=== PATIENT | male | born 1930 | race Caucasian/White ===

== ENCOUNTER 2016-11-03 17:29 | Inpatient (IN) | payer MEDICARE, MEDICAID ==
--- NOTE | 2016-11-03 18:01 | ED Physician Chart ---
Chief Complaint/HPI - Patient Information Date Seen:: 11/03/16 Time Seen:: 17:30 Chief Complaint:: left long finger redness History of Present Illness:: patient has had redness left long finger since June. No chills or fever. Allergies:: Allergies Allergy/AdvReac Type Severity Reaction Status Date / Time No Known Allergies Allergy Verified 06/19/16 16:26 Historian:: Patient, EMS Review:: Nurse's Note Reviewed Review of Systems - Review of Systems General/Constitutional: No fever, No chills Skin: Skin lesions Head: No headache Eyes: No loss of vision ENT: No earache Neck: No neck pain Cardio Vascular: No chest pain Pulmonary: No SOB GI: No nausea, No vomiting G/U: No dysuria Musculoskeletal: No bone or joint pain Endocrine: No polyuria Psychiatric: No prior psych history Past Medical History - Past Medical History Past Medical History: DM, CAD, Asthma/COPD, Arthritis, Other (PVD) Family History: HTN Social History: Care Facility Surgical History: other (bladder surgery more than 50 years ago; amputation distal segment left index finger for infection) Psychiatricy History: Other (periods of forgetfulness) Medication: Reviewed Family Medical History - Family Member Mother History Unknown: Yes Ethnicity: Physical Exam - Physical Examination General/Constitutional: Well-developed, well-nourished, Alert Head: Atraumatic Eyes: Lids, conjuctiva normal, PERRL Other Eyes comments:: arcus senilis Skin: No rash ENMT: External ears, nose nl, Lips, teeth, gums nl, Oropharynx nl Neck: No nuchal rigidity Respiratory: Nl effort/Exclusion, Clear to Auscultation, No Wheeze/Rhonchi/Rales Cardio Vascular: RRR, No murmur, gallop, rubs GI: No tenderness/rebounding/guarding, No organomegaly, No hernia, Normal BS's : No CVA tenderness Other Extremities comments:: left long finger: redness distal to PIP joint; slightly shortened. Left index finger: amputation at DIP joint Neuro/Psych: Alert/oriented, No focal deficits Misc: Normal back Labs/Radiology/EKG Results - Lab Results Results: Laboratory Results - last 24 hr 11/03/16 11/03/16 18:00 18:00 WBC 4.1 L D RBC 3.94 Hgb 12.0 L Hct 35.8 L MCV 90.9 MCH 30.5 MCHC Differential 33.5 RDW 12.8 Plt Count 178 MPV 7.8 Neutrophils % 67.1 Lymphocytes % 19.9 L Monocytes % 10.4 H Eosinophils % 1.7 Basophils % 0.9 Sodium 134 L Potassium 4.6 Chloride 98 Carbon Dioxide 31.5 H Anion Gap 9.1 BUN 24 Creatinine 1.5 H Est GFR ( Amer) TNP Est GFR (Non-Af Amer) TNP BUN/Creatinine Ratio 16.0 Glucose 100 Calcium 8.8 - Radiology Results Results: left hand x-ray: resorption distal phalanx left long finger ED Septic Shock - . Is Septic Shock (SBP<90, OR Lactate>4 mmol\L) present?: No Reassessment (Disposition) - Reassessment Reassessment Condition:: Unchanged - Diagnosis Diagnosis:: osteomyelitis distal phalanx left long finger - Patient Disposition Admitted to:: Med/Surg Spoke to:: Rosendo Chun Admitting Medical Physician:: Rosendo Chun Condition at Disposition:: Stable, Unchanged
[2016-11-03 18:11] LABS: % BASOPHILS 0.9 % (0.0-2.0); % EOSINOPHILS 1.7 % (0.0-5.0); % LYMPHOCYTES 19.9 % (20.0-50.0); % MONOCYTES 10.4 % (2.0-10.0); % NEUTROPHILS 67.1 % (40.0-80.0); HEMATOCRIT 35.8 % (39.0-49.0); MEAN CELL VOLUME 90.9 fl (80-99); MEAN CORPUSCULAR HEMOGLOBIN 30.5 pg (27.0-31.0); MEAN CORPUSCULAR HGB CONC 33.5 pg (28.0-36.0); MEAN PLATELET VOLUME 7.8 fl; NEUTROPHILE ABSOLUTE 2.8 Th/cmm (1.8-8.0); PLATELET COUNT 178 Th/cmm (150-400); RED BLOOD COUNT 3.94 Mil/cmm (3.80-5.80); RED CELL DISTRIBUTION WIDTH 12.8 % (11.5-20.0)
[2016-11-03 18:26] LABS: ANION GAP 9.1 (7.0-16.0); BUN - UREA NITROGEN 24 mg/dL (7-25); CALCIUM SERUM 8.8 mg/dL (8.6-10.3); CARBON DIOXIDE 31.5 mEq/L (21.0-31.0); CHLORIDE 98 mEq/L (98-107); CREATININE - SERUM 1.5 mg/dL (0.7-1.3); GLUCOSE 100 mg/dL (70-105); POTASSIUM SERUM 4.6 mEq/L (3.5-5.1); SODIUM SERUM 134 mEq/L (136-145)
[2016-11-03 18:29] LABS: WHITE BLOOD COUNT 4.1 Th/cmm (4.8-10.8)
[2016-11-03 22:53] VITALS: BP 129/73
[2016-11-04] MEDS ORDERED: Magnesium Hydroxide (MOM) 30 mL UDC PO PRN (00:20)
[2016-11-04] MEDS ORDERED: Albuterol Nebulizer 2.5mg/3mL HHN PRN (00:25)
[2016-11-04] MEDS: Multivitamin Tab PO SCH (08:32)
[2016-11-04] MEDS: Pantoprazole 40 mg EC Tab PO SCH (08:32)
--- NOTE | 2016-11-04 10:40 | Diagnostic Imaging Report ---
Left hand 2 views Indication: Pain, osteomyelitis Comparison: none Findings: There is evidence of partial amputation of the second ray at the level of the mid phalanx. There is soft tissue swelling of the third ray with fracture and nonvisualization of the shaft and tuft of the third distal phalanx. Advanced degenerative changes of the radiocarpal joint is seen with scapholunate dissociation and diffuse chondrocalcinosis. Impression: Fracture of the third distal phalanx with nonvisualization of the shaft and the tuft which may be sequela of osteomyelitis and possible partial amputation. Please correlate clinically. There is diffuse surrounding soft tissue swelling. As such, osteomyelitis is highly likely in this region. Consider additional exam such as MRI if needed. Evidence of partial amputation at the level of the second mid phalanx Advanced degenerative changes of proximal carpal low with scapholunate dissociation. In the setting of trauma, if clinical symptoms persist and there is continued concern for an occult fracture, follow up exams in 5-7 days is suggested.
--- NOTE | 2016-11-04 11:45 | General Progress Note ---
Subjective - Review of Systems Service Date: 11/04/16 Events since last encounter: consult: infected distal phalanx left 3rd finder xray noted recommendation: amputation of distal phalanx on 11/07/16 Objective - Results Result Diagrams: 11/03/16 18:00 11/03/16 18:00 Recent Labs: Laboratory Last Values WBC 4.1 Th/cmm (4.8-10.8) L D 11/03/16 18:00 RBC 3.94 Mil/cmm (3.80-5.80) 11/03/16 18:00 Hgb 12.0 gm/dL (12.6-17.4) L 11/03/16 18:00 Hct 35.8 % (39.0-49.0) L 11/03/16 18:00 MCV 90.9 fl (80-99) 11/03/16 18:00 MCH 30.5 pg (27.0-31.0) 11/03/16 18:00 MCHC Differential 33.5 pg (28.0-36.0) 11/03/16 18:00 RDW 12.8 % (11.5-20.0) 11/03/16 18:00 Plt Count 178 Th/cmm (150-400) 11/03/16 18:00 MPV 7.8 fl 11/03/16 18:00 Neutrophils % 67.1 % (40.0-80.0) 11/03/16 18:00 Lymphocytes % 19.9 % (20.0-50.0) L 11/03/16 18:00 Monocytes % 10.4 % (2.0-10.0) H 11/03/16 18:00 Eosinophils % 1.7 % (0.0-5.0) 11/03/16 18:00 Basophils % 0.9 % (0.0-2.0) 11/03/16 18:00 ESR 46 mm/hr (0-20) H 11/04/16 06:28 Sodium 134 mEq/L (136-145) L 11/03/16 18:00 Potassium 4.6 mEq/L (3.5-5.1) 11/03/16 18:00 Chloride 98 mEq/L (98-107) 11/03/16 18:00 Carbon Dioxide 31.5 mEq/L (21.0-31.0) H 11/03/16 18:00 Anion Gap 9.1 (7.0-16.0) 11/03/16 18:00 BUN 24 mg/dL (7-25) 11/03/16 18:00 Creatinine 1.5 mg/dL (0.7-1.3) H 11/03/16 18:00 Est GFR ( Amer) TNP 11/03/16 18:00 Est GFR (Non-Af Amer) TNP 11/03/16 18:00 BUN/Creatinine Ratio 16.0 11/03/16 18:00 Glucose 100 mg/dL (70-105) 11/03/16 18:00 Calcium 8.8 mg/dL (8.6-10.3) 11/03/16 18:00 - Physical Exam Vitals and I&O: Vital Signs Temp 97.2 F 11/04/16 04:00 Pulse 60 11/04/16 08:32 Resp 18 11/04/16 04:00 BP 148/78 11/04/16 08:32 Pulse Ox 100 11/04/16 04:00 Active Medications: Current Medications Acetaminophen (Tylenol) 650 mg PO Q4H PRN PRN Reason: Pain (Mild) Stop: 01/03/17 00:17 Albuterol Sulfate (Albuterol 2.5mg/3ml Neb Ud) 2.5 mg HHN Q6H PRN PRN Reason: Shortness of Breath Stop: 01/03/17 00:24 Aspirin (Ecotrin) 81 mg PO DAILY [facility] Stop: 01/03/17 08:59 Last Admin: 11/04/16 08:32 Dose: 81 mg Carvedilol (Coreg) 6.25 mg PO BID [facility] Stop: 01/03/17 08:59 Last Admin: 11/04/16 08:32 Dose: 6.25 mg Docusate Sodium (Colace) 100 mg PO BID [facility] Stop: 01/03/17 08:59 Last Admin: 11/04/16 08:32 Dose: 100 mg Ibuprofen (Motrin) 400 mg PO Q6H PRN PRN Reason: Pain (Mild) Stop: 01/03/17 00:19 Magnesium Hydroxide (Milk Of Magnesia) 30 ml PO DAILY PRN PRN Reason: Constipation Stop: 01/03/17 00:19 Multivitamins/Vitamin C (Theragran) 1 tab PO DAILY [facility] Stop: 01/03/17 08:59 Last Admin: 11/04/16 08:32 Dose: 1 tab Pantoprazole Sodium (Protonix) 40 mg PO DAILY [facility] Stop: 01/03/17 08:59 Last Admin: 11/04/16 08:32 Dose: 40 mg
--- NOTE | 2016-11-04 13:19 | Admit Criteria Form ---
Admit Criteria Forms - Admit Criteria Diagnosis: OSTEOMYELITIS Clinical Indications for Admission to Inpatient Care (Place 'X' for any and all applicable criteria) Admission is indicated by ANY ONE of the following (1)(2)(3)(4)(5)(6): [ ] I. Significant systemic illness indicated by 2 or more of the following: [ ]a) Core (eg rectal) temperature greater or equal [id number](37.8C) in an adult [ ]b) Oral temperature[A] greater than or equal to 99.3 degrees F ( 37.4 degrees C) in an adult [ ]c) Heart rate greater than 90 beats per minute [ ]d) Respiratory rate greater than 20 breaths per minute or PaCO2 less than 32 mm Hg (4.3 kPa) [ ]e) White blood cell count > 12,000/mm3 (12 x109/L) or < 4000/mm3 ( 4 x109/L) or > 10% band cells [ ] II. Hemodynamic instability [ ] III. Severe pain requiring acute inpatient management [ ] IV. Bacteremia [ ] V. Mental status change (new) [ ] . Limb-threatening infection [ ] VII. Suspected necrotizing soft tissue infection (e.g., gas in tissue) [ ] VIII.Surgical intervention required (e.g., bone or soft tissue debridement, removal of foreign body, or revascularization procedure) not performable in outpatient or emergency department level of care(7) [X ] IX. Appropriate monitoring and therapy (IV antibiotics) cannot be immediately arranged for home or outpatient setting [ ] XI. Outpatient treatment failure (e.g., resistant organism identified, adverse medication effect, progression or lack of sufficient improvement of infection) [ ] XII. High-risk comorbid condition present including ANY ONE of the following : [ ]a) Poorly controlled diabetes (e.g., HbA1c greater than 10% (0.1)) [ ]b) Vascular insufficiency to affected area [ ]c) Cirrhosis [ ]d) Neutropenia [ ]e) Asplenia [ ]f) Immunosuppression (e.g., chronic systemic corticosteroid use) [ ]g) Symptomatic heart failure [ ] XIII.Joint involvement (e.g., septic arthritis) suspected [ ] XIV. Vertebral osteomyelitis [ ] XV. Skull-base osteomyelitis (e.g.,"malignant external otitis")[A](8)(9)(10 ) Extended stay beyond goal length of stay may be needed for(1)(3)(4)(5)(24)(25): [ ]a) Inadequate clinical response to antibiotics (e.g., continued fever, hypotension) [ ]b) Bacteremia [ ]c) Surgical intervention needed (e.g., beyond superficial debridement)(26) [ ]d) Vertebral osteomyelitis with spinal cord compression, abscess formation, or mechanical instability [ ]e) Antibiotic-resistant organism identified (e.g., methicillin-resistant Staphylococcal aureus) [ ]f) Deep venous thrombosis [ ]g) Unstable comorbidities (e.g., heart failure, renal insufficiency, immunosuppressed state)(28) The original [facility] content created by Ramya Lopez has been revised. The portions of the content which have been revised are identified through the use of italic text or in bold, and [facility] neither reviewed nor approved the modified material. All other unmodified content is copyright [facility].Edition 2016. Admit Criteria Met?: Yes
[2016-11-04] MEDS: Vancomycin HCl 1.5 GM in Sodium Chloride 0.9% 500 ML IV SCH (15:22)
[2016-11-04] MEDS ORDERED: VTE Chemical Prophylaxis Screen/Admission MC PRN (16:58)
[2016-11-05 07:49] LABS: ANION GAP 7.2 (7.0-16.0); BUN - UREA NITROGEN 22 mg/dL (7-25); BUN/CREATININE RATIO 16.9; CALCIUM SERUM 9.1 mg/dL (8.6-10.3); CARBON DIOXIDE 32.3 mEq/L (21.0-31.0); CHLORIDE 102 mEq/L (98-107); CREATININE - SERUM 1.3 mg/dL (0.7-1.3); GLUCOSE 88 mg/dL (70-105); POTASSIUM SERUM 4.5 mEq/L (3.5-5.1); SODIUM SERUM 137 mEq/L (136-145)
[2016-11-05] MEDS: Pantoprazole 40 mg EC Tab PO SCH (08:19)
[2016-11-05] MEDS: Multivitamin Tab PO SCH (08:20)
[2016-11-05] MEDS: Vancomycin HCl 1.5 GM in Sodium Chloride 0.9% 500 ML IV SCH (09:16)
--- NOTE | 2016-11-05 11:39 | General Progress Note ---
Subjective - Review of Systems Service Date: 11/05/16 Events since last encounter: will schedule for amputation of left middle finger distal phalanx if patient agrees refused this recommendation yesterday Objective - Results Result Diagrams: 11/03/16 18:00 11/05/16 06:50 Recent Labs: Laboratory Last Values WBC 4.1 Th/cmm (4.8-10.8) L D 11/03/16 18:00 RBC 3.94 Mil/cmm (3.80-5.80) 11/03/16 18:00 Hgb 12.0 gm/dL (12.6-17.4) L 11/03/16 18:00 Hct 35.8 % (39.0-49.0) L 11/03/16 18:00 MCV 90.9 fl (80-99) 11/03/16 18:00 MCH 30.5 pg (27.0-31.0) 11/03/16 18:00 MCHC Differential 33.5 pg (28.0-36.0) 11/03/16 18:00 RDW 12.8 % (11.5-20.0) 11/03/16 18:00 Plt Count 178 Th/cmm (150-400) 11/03/16 18:00 MPV 7.8 fl 11/03/16 18:00 Neutrophils % 67.1 % (40.0-80.0) 11/03/16 18:00 Lymphocytes % 19.9 % (20.0-50.0) L 11/03/16 18:00 Monocytes % 10.4 % (2.0-10.0) H 11/03/16 18:00 Eosinophils % 1.7 % (0.0-5.0) 11/03/16 18:00 Basophils % 0.9 % (0.0-2.0) 11/03/16 18:00 ESR 46 mm/hr (0-20) H 11/04/16 06:28 Sodium 137 mEq/L (136-145) 11/05/16 06:50 Potassium 4.5 mEq/L (3.5-5.1) 11/05/16 06:50 Chloride 102 mEq/L (98-107) 11/05/16 06:50 Carbon Dioxide 32.3 mEq/L (21.0-31.0) H 11/05/16 06:50 Anion Gap 7.2 (7.0-16.0) 11/05/16 06:50 BUN 22 mg/dL (7-25) 11/05/16 06:50 Creatinine 1.3 mg/dL (0.7-1.3) 11/05/16 06:50 Est GFR ( Amer) TNP 11/05/16 06:50 Est GFR (Non-Af Amer) TNP 11/05/16 06:50 BUN/Creatinine Ratio 16.9 11/05/16 06:50 Glucose 88 mg/dL (70-105) 11/05/16 06:50 Calcium 9.1 mg/dL (8.6-10.3) 11/05/16 06:50 - Physical Exam Vitals and I&O: Vital Signs Temp 97.4 F 11/05/16 11:26 Pulse 54 11/05/16 11:26 Resp 18 11/05/16 11:26 BP 132/62 11/05/16 11:26 Pulse Ox 98 11/05/16 11:26 Intake & Output 11/04/16 11/05/16 11/05/16 18:59 06:59 18:59 Intake Total 1100 Balance 1100 Intake: Intake, IV Amount 500 Vancomycin HCl 1.5 gm In 500 Sodium Chloride 0.9% 500 ml @ 250 mls/hr IV Q18H [facility] Rx#:[id number] Oral 600 Active Medications: Current Medications Acetaminophen (Tylenol) 650 mg PO Q4H PRN PRN Reason: Pain (Mild) Stop: 01/03/17 00:17 Albuterol Sulfate (Albuterol 2.5mg/3ml Neb Ud) 2.5 mg HHN Q6H PRN PRN Reason: Shortness of Breath Stop: 01/03/17 00:24 Aspirin (Ecotrin) 81 mg PO DAILY [facility] Stop: 01/03/17 08:59 Last Admin: 11/05/16 08:20 Dose: 81 mg Carvedilol (Coreg) 6.25 mg PO BID [facility] Stop: 01/03/17 08:59 Last Admin: 11/05/16 08:19 Dose: 6.25 mg Docusate Sodium (Colace) 100 mg PO BID [facility] Stop: 01/03/17 08:59 Last Admin: 02/25/17 08:19 Dose: 100 mg Vancomycin HCl 1.5 gm/ Sodium (Chloride) 500 mls @ 250 mls/hr IV Q18H [facility] Stop: 01/03/17 14:59 Last Admin: 11/05/16 09:16 Dose: 250 mls/hr Ibuprofen (Motrin) 400 mg PO Q6H PRN PRN Reason: Pain (Mild) Stop: 01/03/17 00:19 Magnesium Hydroxide (Milk Of Magnesia) 30 ml PO DAILY PRN PRN Reason: Constipation Stop: 01/03/17 00:19 Miscellaneous (Vancomycin Iv Per Pharmacy) 1 ea PRN [facility] Stop: 01/03/17 13:14 Miscellaneous (Vte Chemical Prophylaxis Screen/ Admission) 1 [facility] PRN PRN PRN Reason: PROTOCOL Stop: 01/03/17 16:57 Multivitamins/Vitamin C (Theragran) 1 tab PO DAILY [facility] Stop: 01/03/17 08:59 Last Admin: 11/05/16 08:20 Dose: 1 tab Pantoprazole Sodium (Protonix) 40 mg PO DAILY [facility] Stop: 01/03/17 08:59 Last Admin: 11/05/16 08:19 Dose: 40 mg
--- NOTE | 2016-11-05 16:36 | History & Physical ---
CHIEF COMPLAINT: The patient has left long finger redness with a wound at the distal end with swelling. HISTORY OF PRESENT ILLNESS: The patient is an 86-year-old male with a past medical history of bladder surgery many years ago, amputation of distal segment of the left index finger for infection, brought from the nursing facility for swelling and redness and open wound at the distal end of the long finger of the left hand. The patient denies any fever or chills. However, x-ray of the left hand suggested osteomyelitis. The patient has been set up for further care. PAST MEDICAL HISTORY: Includes diabetes mellitus type 2, coronary artery disease, asthma, COPD, arthritis and peripheral vascular disease. FAMILY HISTORY: Hypertension. ALLERGIES: NKDA. MEDICATIONS: See medication reconciliation sheet. SOCIAL HISTORY: The patient lives in a nursing facility. No history of smoking, alcohol or drug use. PAST SURGICAL HISTORY: Include bladder surgery 50 years ago, partial amputation of distal phalanx of left middle finger. PSYCHIATRIC HISTORY: Dementia. REVIEW OF SYSTEMS: GENERAL: The patient has no fever and no chills. HEENT: No diplopia, no photophobia and no sore throat. RESPIRATORY: No cough. No shortness of breath. CARDIOVASCULAR: No chest pain or palpitation. GASTROINTESTINAL: No nausea, no vomiting, no diarrhea and no constipation. GENITOURINARY: No dysuria. SKIN: The patient has opening at the distal end of left middle finger. It is also swollen and tender. PHYSICAL EXAMINATION: VITAL SIGNS: Shows temperature is 97.2, pulse 60, respirations 18 and blood pressure is 148/78. GENERAL: The patient is comfortable lying in the bed, not in acute distress. HEENT: Head is normocephalic and atraumatic. Oral cavity is moist. [place] tongue. Eyes: Pallor is present. No icterus. Pupils PERRLA, EOMI. NECK: Supple, no JVD, no carotid bruit. Trachea in midline. CHEST: Bilateral breath sounds. No crackles, no wheezing. HEART: S1, S2 within normal limits. Regular rhythm. No murmur, no gallop. ABDOMEN: Soft, nontender, nondistended. Bowel sounds present. EXTREMITIES: No cyanosis, no clubbing and no edema. Left hand middle finger has opening at the distal end with the bone exposed. The patient also has significant tender swelling. mild erythema. NEUROLOGIC: Alert, awake and oriented x 3. LABORATORY DATA: Current lab shows WBC count is 4100, hemoglobin 12, hematocrit 35.8, platelets are 178,000 and neutrophil is 67%. ESR is 46, sodium is 134, potassium 4.6, chloride 98, bicarbonate is 31, BUN is 24, creatinine 1.5 and glucose is 100. X-ray of the hand showed osteomyelitis of left distal phalanx. RECOMMENDATIONS: We will continue vancomycin and consult Dr. Garcia who is going to do amputation of middle finger on Monday. JOB# [id number] MTDD
--- NOTE | 2016-11-05 23:20 | Infectious Disease Prog Note ---
Infectious Disease Subjective - Review of Systems Service Date: 11/05/16 Subjective: No new change. No fever. Infectious Disease Objective - Results Result Diagrams: 11/03/16 18:00 11/05/16 06:50 Recent Labs: Laboratory Last Values WBC 4.1 Th/cmm (4.8-10.8) L D 11/03/16 18:00 RBC 3.94 Mil/cmm (3.80-5.80) 11/03/16 18:00 Hgb 12.0 gm/dL (12.6-17.4) L 11/03/16 18:00 Hct 35.8 % (39.0-49.0) L 11/03/16 18:00 MCV 90.9 fl (80-99) 11/03/16 18:00 MCH 30.5 pg (27.0-31.0) 11/03/16 18:00 MCHC Differential 33.5 pg (28.0-36.0) 11/03/16 18:00 RDW 12.8 % (11.5-20.0) 11/03/16 18:00 Plt Count 178 Th/cmm (150-400) 11/03/16 18:00 MPV 7.8 fl 11/03/16 18:00 Neutrophils % 67.1 % (40.0-80.0) 11/03/16 18:00 Lymphocytes % 19.9 % (20.0-50.0) L 11/03/16 18:00 Monocytes % 10.4 % (2.0-10.0) H 11/03/16 18:00 Eosinophils % 1.7 % (0.0-5.0) 11/03/16 18:00 Basophils % 0.9 % (0.0-2.0) 11/03/16 18:00 ESR 46 mm/hr (0-20) H 11/04/16 06:28 Sodium 137 mEq/L (136-145) 11/05/16 06:50 Potassium 4.5 mEq/L (3.5-5.1) 11/05/16 06:50 Chloride 102 mEq/L (98-107) 11/05/16 06:50 Carbon Dioxide 32.3 mEq/L (21.0-31.0) H 11/05/16 06:50 Anion Gap 7.2 (7.0-16.0) 11/05/16 06:50 BUN 22 mg/dL (7-25) 11/05/16 06:50 Creatinine 1.3 mg/dL (0.7-1.3) 11/05/16 06:50 Est GFR ( Amer) TNP 11/05/16 06:50 Est GFR (Non-Af Amer) TNP 11/05/16 06:50 BUN/Creatinine Ratio 16.9 11/05/16 06:50 Glucose 88 mg/dL (70-105) 11/05/16 06:50 Calcium 9.1 mg/dL (8.6-10.3) 11/05/16 06:50 - Physical Exam Vitals and I&O: Vital Signs Temp 97.6 F 11/05/16 20:00 Pulse 68 11/05/16 20:00 Resp 18 11/05/16 20:00 BP 130/66 11/05/16 20:00 Pulse Ox 96 11/05/16 20:00 Intake & Output 11/05/16 11/05/16 11/06/16 06:59 18:59 06:59 Intake Total 650 Balance 650 Intake: Oral 650 Other: # Voids 3 Active Medications: Current Medications Acetaminophen (Tylenol) 650 mg PO Q4H PRN PRN Reason: Pain (Mild) Stop: 01/03/17 00:17 Albuterol Sulfate (Albuterol 2.5mg/3ml Neb Ud) 2.5 mg HHN Q6H PRN PRN Reason: Shortness of Breath Stop: 01/03/17 00:24 Aspirin (Ecotrin) 81 mg PO DAILY [facility] Stop: 01/03/17 08:59 Last Admin: 11/05/16 08:20 Dose: 81 mg Carvedilol (Coreg) 6.25 mg PO BID [facility] Stop: 01/03/17 08:59 Last Admin: 11/05/16 16:29 Dose: 6.25 mg Docusate Sodium (Colace) 100 mg PO BID [facility] Stop: 01/03/17 08:59 Last Admin: 11/05/16 16:29 Dose: 100 mg Vancomycin HCl 1.5 gm/ Sodium (Chloride) 500 mls @ 250 mls/hr IV Q18H [facility] Stop: 01/03/17 14:59 Last Admin: 11/05/16 09:16 Dose: 250 mls/hr Ibuprofen (Motrin) 400 mg PO Q6H PRN PRN Reason: Pain (Mild) Stop: 01/03/17 00:19 Magnesium Hydroxide (Milk Of Magnesia) 30 ml PO DAILY PRN PRN Reason: Constipation Stop: 01/03/17 00:19 Miscellaneous (Vancomycin Iv Per Pharmacy) 1 ea [facility] PRN [facility] Stop: 01/03/17 13:14 Miscellaneous (Vte Chemical Prophylaxis Screen/ Admission) 1 ea PRN PRN PRN Reason: PROTOCOL Stop: 01/03/17 16:57 Multivitamins/Vitamin C (Theragran) 1 tab PO DAILY [facility] Stop: 01/03/17 08:59 Last Admin: 11/05/16 08:20 Dose: 1 tab Pantoprazole Sodium (Protonix) 40 mg PO DAILY [facility] Stop: 01/03/17 08:59 Last Admin: 11/05/16 08:19 Dose: 40 mg General: no acute distress, well developed, well nourished HEENT: atraumatic, normocephalic, PERRLA, EOMI, moist mucous membrane Neck: supple, no thyromegaly Cardiovascular: S1S2, regular Lungs: clear to auscultation bilaterally, clear to percussion Abdomen: soft, no tender, no distended Extremities: no cyanosis, no clubbing, no edema (left hand long finger.) Neurological: awake, alert, oriented Infectious Disease Assmt/Plan - Assessment Assessment: Osteomyelitis, left middle finger. DM2. - Plan Plan: Continue the same treatment
[2016-11-06] MEDS: INSULIN ASPART, RECOMBINANT 100 UNITS/ML SUBQ SCH ×6 (01:25→23:20)
[2016-11-06] MEDS: Vancomycin HCl 1.5 GM in Sodium Chloride 0.9% 500 ML IV SCH ×2 (03:37→21:14)
[2016-11-06] MEDS: Multivitamin Tab PO SCH (08:48)
[2016-11-06] MEDS: Pantoprazole 40 mg EC Tab PO SCH (08:48)
--- NOTE | 2016-11-06 09:26 | General Progress Note ---
Subjective - Review of Systems Service Date: 11/06/16 Events since last encounter: patient now agrees to amputation of distal phalanx, left middle finger Objective - Results Result Diagrams: 11/03/16 18:00 11/05/16 06:50 Recent Labs: Laboratory Last Values WBC 4.1 Th/cmm (4.8-10.8) L D 11/03/16 18:00 RBC 3.94 Mil/cmm (3.80-5.80) 11/03/16 18:00 Hgb 12.0 gm/dL (12.6-17.4) L 11/03/16 18:00 Hct 35.8 % (39.0-49.0) L 11/03/16 18:00 MCV 90.9 fl (80-99) 11/03/16 18:00 MCH 30.5 pg (27.0-31.0) 11/03/16 18:00 MCHC Differential 33.5 pg (28.0-36.0) 11/03/16 18:00 RDW 12.8 % (11.5-20.0) 11/03/16 18:00 Plt Count 178 Th/cmm (150-400) 11/03/16 18:00 MPV 7.8 fl 11/03/16 18:00 Neutrophils % 67.1 % (40.0-80.0) 11/03/16 18:00 Lymphocytes % 19.9 % (20.0-50.0) L 11/03/16 18:00 Monocytes % 10.4 % (2.0-10.0) H 11/03/16 18:00 Eosinophils % 1.7 % (0.0-5.0) 11/03/16 18:00 Basophils % 0.9 % (0.0-2.0) 11/03/16 18:00 ESR 46 mm/hr (0-20) H 11/04/16 06:28 Sodium 137 mEq/L (136-145) 11/05/16 06:50 Potassium 4.5 mEq/L (3.5-5.1) 11/05/16 06:50 Chloride 102 mEq/L (98-107) 11/05/16 06:50 Carbon Dioxide 32.3 mEq/L (21.0-31.0) H 11/05/16 06:50 Anion Gap 7.2 (7.0-16.0) 11/05/16 06:50 BUN 22 mg/dL (7-25) 11/05/16 06:50 Creatinine 1.3 mg/dL (0.7-1.3) 11/05/16 06:50 Est GFR ( Amer) TNP 11/05/16 06:50 Est GFR (Non-Af Amer) TNP 11/05/16 06:50 BUN/Creatinine Ratio 16.9 11/05/16 06:50 Glucose 88 mg/dL (70-105) 11/05/16 06:50 POC Glucose 79 MG/DL (70 - 105) 11/06/16 05:28 Calcium 9.1 mg/dL (8.6-10.3) 11/05/16 06:50 Vancomycin Trough 14.3 ug/mL (10-20) 11/06/16 02:00 - Physical Exam Vitals and I&O: Vital Signs Temp 98.0 F 11/06/16 08:00 Pulse 55 11/06/16 08:48 Resp 17 11/06/16 08:00 BP 111/55 11/06/16 08:48 Pulse Ox 100 11/06/16 08:00 Intake & Output 11/05/16 11/06/16 11/06/16 18:59 06:59 18:59 Intake Total 1150 Balance 1150 Intake: Intake, IV Amount 500 Vancomycin HCl 1.5 gm In 500 Sodium Chloride 0.9% 500 ml @ 250 mls/hr IV Q18H [facility] Rx#:[id number] Oral 650 Other: # Voids 3 1 Active Medications: Current Medications Acetaminophen (Tylenol) 650 mg PO Q4H PRN PRN Reason: Pain (Mild) Stop: 01/03/17 00:17 Albuterol Sulfate (Albuterol 2.5mg/3ml Neb Ud) 2.5 mg HHN Q6H PRN PRN Reason: Shortness of Breath Stop: 01/03/17 00:24 Aspirin (Ecotrin) 81 mg PO DAILY [facility] Stop: 01/03/17 08:59 Last Admin: 11/06/16 08:48 Dose: 81 mg Carvedilol (Coreg) 6.25 mg PO BID [facility] Stop: 01/03/17 08:59 Last Admin: 11/06/16 08:48 Dose: 6.25 mg Docusate Sodium (Colace) 100 mg PO BID [facility] Stop: 01/03/17 08:59 Last Admin: 11/06/16 08:48 Dose: 100 mg Vancomycin HCl 1.5 gm/ Sodium (Chloride) 500 mls @ 250 mls/hr IV Q18H [facility] [place] Stop: 01/03/17 14:59 Last Admin: 11/06/16 03:37 Dose: 250 mls/hr Ibuprofen (Motrin) 400 mg PO Q6H PRN PRN Reason: Pain (Mild) Stop: 01/03/17 00:19 Insulin Aspart (Novolog) 0 units SUBQ Q6HR NEGAR PRN Reason: Protocol Stop: 01/05/17 01:14 Last Admin: 11/06/16 05:34 Dose: Not Given Magnesium Hydroxide (Milk Of Magnesia) 30 ml PO DAILY PRN PRN Reason: Constipation Stop: 01/03/17 00:19 Miscellaneous (Vancomycin Iv Per Pharmacy) 1 ea PRN [facility] [place] Stop: 01/03/17 13:14 Miscellaneous ([employer] Prophylaxis Screen/ Admission) 1 ea PRN PRN PRN Reason: PROTOCOL Stop: 01/03/17 16:57 Multivitamins/Vitamin C (Theragran) 1 tab PO DAILY [facility] [place] Stop: 01/03/17 08:59 Last Admin: 11/06/16 08:48 Dose: 1 tab Pantoprazole Sodium (Protonix) 40 mg PO DAILY [facility] [place] Stop: 01/03/17 08:59 Last Admin: 11/06/16 08:48 Dose: 40 mg
[2016-11-06 09:49] LABS: HEMOGLOBIN 10.9 gm/dL (12.6-17.4); MEAN CELL VOLUME 90.8 fl (80-99); MEAN CORPUSCULAR HEMOGLOBIN 30.7 pg (27.0-31.0); MEAN CORPUSCULAR HGB CONC 33.8 pg (28.0-36.0); MEAN PLATELET VOLUME 8.9 fl; PLATELET COUNT 144 Th/cmm (150-400); RED BLOOD COUNT 3.55 Mil/cmm (3.80-5.80)
[2016-11-06 10:17] LABS: HEMATOCRIT 32.2 % (39.0-49.0)
[2016-11-06 10:39] LABS: BAND NEUTROPHILE 1 % (0-10); BASOPHIL 1 % (0-3); EOSINOPHIL 4 % (0-5); NEUTROPHILS 58 % (40-80); PLATELET ESTIMATE ADEQUATE (NORMAL); PLATELET MORPHOLOGY GIANT PLATELETS SEEN (NORMAL); TOTAL CELLS COUNTED 100
--- NOTE | 2016-11-06 18:17 | Infectious Disease Prog Note ---
Infectious Disease Subjective - Review of Systems Service Date: 11/06/16 Subjective: No new change. No fever. Infectious Disease Objective - Results Result Diagrams: 11/06/16 02:00 11/05/16 06:50 Recent Labs: Laboratory Last Values WBC 4.0 Th/cmm (4.8-10.8) L 11/06/16 02:00 RBC 3.55 Mil/cmm (3.80-5.80) L 11/06/16 02:00 Hgb 10.9 gm/dL (12.6-17.4) L 11/06/16 02:00 Hct 32.2 % (39.0-49.0) L D 11/06/16 02:00 MCV 90.8 fl (80-99) 11/06/16 02:00 MCH 30.7 pg (27.0-31.0) 11/06/16 02:00 MCHC Differential 33.8 pg (28.0-36.0) 11/06/16 02:00 RDW 13.0 % (11.5-20.0) 11/06/16 02:00 Plt Count 144 Th/cmm (150-400) L 11/06/16 02:00 MPV 8.9 fl 11/06/16 02:00 Neutrophils % 67.1 % (40.0-80.0) 11/03/16 18:00 Band Neutrophils % 1 % (0-10) 11/06/16 02:00 Lymphocytes % 19.9 % (20.0-50.0) L 11/03/16 18:00 Monocytes % 10.4 % (2.0-10.0) H 11/03/16 18:00 Eosinophils % 1.7 % (0.0-5.0) 11/03/16 18:00 Basophils % 0.9 % (0.0-2.0) 11/03/16 18:00 Neutrophils (Manual) 58 % (40-80) 11/06/16 02:00 Lymphocytes 22 % (20-50) 11/06/16 02:00 Monocytes 12 % (2-10) H 11/06/16 02:00 Eosinophils 4 % (0-5) 11/06/16 02:00 Basophils 1 % (0-3) 11/06/16 02:00 Atypical Lymphocytes 2 % 11/06/16 02:00 Platelet Estimate ADEQUATE (NORMAL) 11/06/16 02:00 Platelet Morphology GIANT PLATELETS SEEN (NORMAL) 11/06/16 02:00 RBC Morph Micro Appear NORMAL (NORMAL) 11/06/16 02:00 ESR 46 mm/hr (0-20) H 11/04/16 06:28 Sodium 137 mEq/L (136-145) 11/05/16 06:50 Potassium 4.5 mEq/L (3.5-5.1) 11/05/16 06:50 Chloride 102 mEq/L (98-107) 11/05/16 06:50 Carbon Dioxide 32.3 mEq/L (21.0-31.0) H 11/05/16 06:50 Anion Gap 7.2 (7.0-16.0) 11/05/16 06:50 BUN 22 mg/dL (7-25) 11/05/16 06:50 Creatinine 1.3 mg/dL (0.7-1.3) 11/05/16 06:50 Est GFR ( Amer) TNP 11/05/16 06:50 Est GFR (Non-Af Amer) TNP 11/05/16 06:50 BUN/Creatinine Ratio 16.9 11/05/16 06:50 Glucose 88 mg/dL (70-105) 11/05/16 06:50 POC Glucose 130 MG/DL (70 - 105) H 11/06/16 15:28 Calcium 9.1 mg/dL (8.6-10.3) 11/05/16 06:50 Vancomycin Trough 14.3 ug/mL (10-20) 11/06/16 02:00 - Physical Exam Vitals and I&O: Vital Signs Temp 96.2 F 11/06/16 16:00 Pulse 58 11/06/16 16:09 Resp 18 11/06/16 16:00 BP 105/55 11/06/16 16:09 Pulse Ox 98 11/06/16 16:00 Intake & Output 11/05/16 11/06/16 11/06/16 18:59 06:59 18:59 Intake Total 1150 650 Balance 1150 650 Intake: Intake, IV Amount 500 Vancomycin HCl 1.5 gm In 500 Sodium Chloride 0.9% 500 ml @ 250 mls/hr IV Q18H [facility] Rx#:[id number] Oral 650 650 Other: # Voids 3 1 3 # Bowel Movements 1 Active Medications: Current Medications Acetaminophen (Tylenol) 650 mg PO Q4H PRN PRN Reason: Pain (Mild) Stop: 01/03/17 00:17 Albuterol Sulfate (Albuterol 2.5mg/3ml Neb Ud) 2.5 mg HHN Q6H PRN PRN Reason: Shortness of Breath Stop: 01/03/17 00:24 Aspirin (Ecotrin) 81 mg PO DAILY [facility] Stop: 01/03/17 08:59 Last Admin: 11/06/16 08:48 Dose: 81 mg Carvedilol (Coreg) 6.25 mg PO BID [facility] Stop: 01/03/17 08:59 Last Admin: 11/06/16 16:09 Dose: Not Given Docusate Sodium (Colace) 100 mg PO BID [facility] Stop: 01/03/17 08:59 Last Admin: 11/06/16 16:08 Dose: 100 mg Vancomycin HCl 1.5 gm/ Sodium (Chloride) 500 mls @ 250 mls/hr IV Q18H [facility] Stop: 01/03/17 14:59 Last Admin: 11/06/16 03:37 Dose: 250 mls/hr Ibuprofen (Motrin) 400 mg PO Q6H PRN PRN Reason: Pain (Mild) Stop: 01/03/17 00:19 Insulin Aspart (Novolog) 0 units SUBQ Q6HR [facility] PRN Reason: Protocol Stop: 01/05/17 01:14 Last Admin: 11/06/16 11:46 Dose: Not Given Magnesium Hydroxide (Milk Of Magnesia) 30 ml PO DAILY PRN PRN Reason: Constipation Stop: 01/03/17 00:19 Miscellaneous (Vancomycin Iv Per Pharmacy) 1 ea [facility] PRN [facility] Stop: 01/03/17 13:14 Miscellaneous (Vte Chemical Prophylaxis Screen/ Admission) 1 ea PRN PRN PRN Reason: PROTOCOL Stop: 01/03/17 16:57 Multivitamins/Vitamin C (Theragran) 1 tab PO DAILY [facility] Stop: 01/03/17 08:59 Last Admin: 11/06/16 08:48 Dose: 1 tab Pantoprazole Sodium (Protonix) 40 mg PO DAILY [facility] Stop: 01/03/17 08:59 Last Admin: 11/06/16 08:48 Dose: 40 mg General: no acute distress, well developed, well nourished HEENT: atraumatic, normocephalic, PERRLA, EOMI Neck: supple, no thyromegaly, no lymphadenopathy Cardiovascular: S1S2, regular, no other Lungs: clear to auscultation bilaterally, clear to percussion Abdomen: soft, no tender, no distended, no mass Extremities: other (left middle finger is swollen.), no cyanosis, no clubbing Neurological: awake, alert, oriented Infectious Disease Assmt/Plan - Assessment Assessment: Osteomyelitis, left middle finger. DM2. - Plan Plan: Continue the same treatment
[2016-11-07] MEDS: INSULIN ASPART, RECOMBINANT 100 UNITS/ML SUBQ SCH ×3 (06:45→17:40)
[2016-11-07 07:23] LABS: INR 1.04 (0.5-1.4); PROTHROMBIN TIME (TEST) 10.3 SECONDS (9.5-11.5)
[2016-11-07 07:24] LABS: ALB/GLOB RATIO 1.1 (1.0-1.8); ALKALINE PHOSPHATASE 56 U/L (34-104); BILIRUBIN,TOTAL 0.3 mg/dL (0.3-1.0); BUN - UREA NITROGEN 19 mg/dL (7-25); BUN/CREATININE RATIO 17.3; CALCIUM SERUM 9.3 mg/dL (8.6-10.3); CARBON DIOXIDE 34.3 mEq/L (21.0-31.0); CHLORIDE 103 mEq/L (98-107); CREATININE - SERUM 1.1 mg/dL (0.7-1.3); GLUCOSE 92 mg/dL (70-105); POTASSIUM SERUM 4.3 mEq/L (3.5-5.1); SGOT 13 U/L (13-39); SGPT/ALT 8 U/L (7-52); SODIUM SERUM 138 mEq/L (136-145)
[2016-11-07] MEDS: Multivitamin Tab PO SCH (09:09)
[2016-11-07] MEDS: Pantoprazole 40 mg EC Tab PO SCH (09:09)
[2016-11-07] MEDS ORDERED: Midazolam 1mg/ml 2 ml vial IV ONE ×2 (11:10→12:00)
[2016-11-07] MEDS ORDERED: Meperidine 25 mg/mL 1mL Syr IVP PRN (11:38)
[2016-11-07] MEDS ORDERED: Lactated Ringer 1,000 ML IV SCH (11:45)
[2016-11-07] MEDS: Vancomycin HCl 1.5 GM in Sodium Chloride 0.9% 500 ML IV SCH (16:58)
--- NOTE | 2016-11-07 21:18 | Progress Notes ---
SUBJECTIVE: The patient was seen in his bed today. The patient is awake and alert. The patient is aware that he will have amputation on his left middle finger. Denies any pain or discomfort. OBJECTIVE: HEENT: Head is atraumatic, normocephalic. Eyes: Bilateral pupils are equally round and reactive. Bilateral conjunctivae are clear for injection. NECK: Supple. No JVD. CARDIOVASCULAR: S1 and S2 heard without murmur. PULMONARY: Clear to auscultation. GASTROINTESTINAL: Soft and nontender. The patient is obese. MUSCULOSKELETAL: No edema or weakness noted. There is still some swelling on the left middle finger. ASSESSMENT: 1. Osteomyelitis. 2. Hypertension. 3. Osteoarthritis. 4. Diabetes. 5. Gastroesophageal reflux disease. PLAN: The patient will be going to have amputation on distal on the left middle finger and we will continue IV antibiotics per ID doctor. JOB# [id number]
[2016-11-08] MEDS: INSULIN ASPART, RECOMBINANT 100 UNITS/ML SUBQ SCH ×4 (00:40→17:26)
[2016-11-08] MEDS: Pantoprazole 40 mg EC Tab PO SCH (08:55)
[2016-11-08] MEDS: Multivitamin Tab PO SCH (08:56)
--- NOTE | 2016-11-08 09:59 | General Progress Note ---
Subjective - Review of Systems Service Date: 11/08/16 Subjective: will change dressings in AM doing OK otherwise Objective - Results Result Diagrams: 11/06/16 02:00 11/07/16 06:47 Recent Labs: Laboratory Last Values WBC 4.0 Th/cmm (4.8-10.8) L 11/06/16 02:00 RBC 3.55 Mil/cmm (3.80-5.80) L 11/06/16 02:00 Hgb 10.9 gm/dL (12.6-17.4) L 11/06/16 02:00 Hct 32.2 % (39.0-49.0) L D 11/06/16 02:00 MCV 90.8 fl (80-99) 11/06/16 02:00 MCH 30.7 pg (27.0-31.0) 11/06/16 02:00 MCHC Differential 33.8 pg (28.0-36.0) 11/06/16 02:00 RDW 13.0 % (11.5-20.0) 11/06/16 02:00 Plt Count 144 Th/cmm (150-400) L 11/06/16 02:00 MPV 8.9 fl 11/06/16 02:00 Neutrophils % 67.1 % (40.0-80.0) 11/03/16 18:00 Band Neutrophils % 1 % (0-10) 11/06/16 02:00 Lymphocytes % 19.9 % (20.0-50.0) L 11/03/16 18:00 Monocytes % 10.4 % (2.0-10.0) H 11/03/16 18:00 Eosinophils % 1.7 % (0.0-5.0) 11/03/16 18:00 Basophils % 0.9 % (0.0-2.0) 11/03/16 18:00 Neutrophils (Manual) 58 % (40-80) 11/06/16 02:00 Lymphocytes 22 % (20-50) 11/06/16 02:00 Monocytes 12 % (2-10) H 11/06/16 02:00 Eosinophils 4 % (0-5) 11/06/16 02:00 Basophils 1 % (0-3) 11/06/16 02:00 Atypical Lymphocytes 2 % 11/06/16 02:00 Platelet Estimate ADEQUATE (NORMAL) 11/06/16 02:00 Platelet Morphology GIANT PLATELETS SEEN (NORMAL) 11/06/16 02:00 RBC Morph Micro Appear NORMAL (NORMAL) 11/06/16 02:00 ESR 46 mm/hr (0-20) H 11/04/16 06:28 PT 10.3 SECONDS (9.5-11.5) 11/07/16 06:47 INR 1.04 (0.5-1.4) 11/07/16 06:47 Sodium 138 mEq/L (136-145) 11/07/16 06:47 Potassium 4.3 mEq/L (3.5-5.1) 11/07/16 06:47 Chloride 103 mEq/L (98-107) 11/07/16 06:47 Carbon Dioxide 34.3 mEq/L (21.0-31.0) H 11/07/16 06:47 Anion Gap 5.0 (7.0-16.0) L 11/07/16 06:47 BUN 19 mg/dL (7-25) 11/07/16 06:47 Creatinine 1.1 mg/dL (0.7-1.3) 11/07/16 06:47 Est GFR ( Amer) TNP 11/07/16 06:47 Est GFR (Non-Af Amer) TNP 11/07/16 06:47 BUN/Creatinine Ratio 17.3 11/07/16 06:47 Glucose 92 mg/dL (70-105) 11/07/16 06:47 POC Glucose 89 MG/DL (70 - 105) 11/08/16 06:56 Calcium 9.3 mg/dL (8.6-10.3) 11/07/16 06:47 Total Bilirubin 0.3 mg/dL (0.3-1.0) 11/07/16 06:47 AST 13 U/L (13-39) 11/07/16 06:47 ALT 8 U/L (7-52) 11/07/16 06:47 Alkaline Phosphatase 56 U/L (34-104) 11/07/16 06:47 Total Protein 6.4 gm/dL (6.0-8.3) 11/07/16 06:47 Albumin 3.3 gm/dL (4.2-5.5) L 11/07/16 06:47 Globulin 3.1 gm/dL 11/07/16 06:47 Albumin/Globulin Ratio 1.1 (1.0-1.8) 11/07/16 06:47 Vancomycin Trough 14.3 ug/mL (10-20) 11/06/16 02:00 - Physical Exam Vitals and I&O: Vital Signs Temp 97.0 F 11/08/16 04:00 Pulse 61 11/08/16 08:55 Resp 18 11/08/16 04:00 BP 137/80 11/08/16 08:55 Pulse Ox 91 11/08/16 04:00 Intake & Output 11/07/16 11/08/16 11/08/16 18:59 06:59 18:59 Intake Total 600 Balance 600 Intake: Intake, IV Amount 500 Vancomycin HCl 1.5 gm In 500 Sodium Chloride 0.9% 500 ml @ 250 mls/hr IV Q18H [facility] Rx#:[id number] Oral 100 Other: # Voids 2 2 Stool Characteristics Soft Soft Active Medications: Current Medications Acetaminophen (Tylenol) 650 mg PO Q4H PRN PRN Reason: Pain (Mild) Stop: 01/03/17 00:17 Last Admin: 11/07/16 23:43 Dose: 650 mg Albuterol Sulfate (Albuterol 2.5mg/3ml Neb Ud) 2.5 mg HHN Q6H PRN PRN Reason: Shortness of Breath Stop: 01/03/17 00:24 Aspirin (Ecotrin) 81 mg PO DAILY [facility] Stop: 01/03/17 08:59 Last Admin: 11/08/16 08:56 Dose: 81 mg Carvedilol (Coreg) 6.25 mg PO BID [facility] Stop: 01/03/17 08:59 Last Admin: 11/08/16 08:55 Dose: 6.25 mg Docusate Sodium (Colace) 100 mg PO BID [facility] Stop: 01/03/17 08:59 Last Admin: 11/08/16 08:56 Dose: 100 mg Vancomycin HCl 1.5 gm/ Sodium (Chloride) 500 mls @ 250 mls/hr IV Q18H [facility] Stop: 01/03/17 14:59 Last Infusion: 11/07/16 19:00 Dose: Infused Ibuprofen (Motrin) 400 mg PO Q6H PRN PRN Reason: Pain (Mild) Stop: 01/03/17 00:19 Insulin Aspart (Novolog) 0 units SUBQ Q6HR [facility] PRN Reason: Protocol Stop: 01/05/17 01:14 Last Admin: 11/08/16 07:00 Dose: Not Given Magnesium Hydroxide (Milk Of Magnesia) 30 ml PO DAILY PRN PRN Reason: Constipation Stop: 01/03/17 00:19 Miscellaneous (Vancomycin Iv Per Pharmacy) 1 ea PRN [facility] Stop: 01/03/17 13:14 Miscellaneous (Vte Chemical Prophylaxis Screen/ Admission) 1 [facility] PRN PRN PRN Reason: PROTOCOL Stop: 01/03/17 16:57 Multivitamins/Vitamin C (Theragran) 1 tab PO DAILY [facility] Stop: 01/03/17 08:59 Last Admin: 11/08/16 08:56 Dose: 1 tab Pantoprazole Sodium (Protonix) 40 mg PO DAILY [facility] Stop: 01/03/17 08:59 Last Admin: 11/08/16 08:55 Dose: 40 mg
[2016-11-08] MEDS: Vancomycin HCl 1.5 GM in Sodium Chloride 0.9% 500 ML IV SCH ×2 (10:00→13:55)
--- NOTE | 2016-11-08 12:35 | Consultation ---
REFERRING PHYSICIAN: Rosendo Chun M.D. REASON FOR CONSULTATION: Infected left middle finger distal tip. Thank you for referring this patient to me. HISTORY OF PRESENT ILLNESS: This is an 86-year-old male with several month history of infection involving the tip of the third left finger involving the nail and the bone. The patient has diabetes mellitus, coronary artery disease, COPD and peripheral vascular disease. He underwent x-ray of the hand and this showed findings consistent with fracture of the distal phalanx with nonvisualization of the shaft raising the question of osteomyelitis. LABORATORY STUDIES: The CBC is normal. Chemistry also within normal limits. PHYSICAL EXAMINATION: The patient speaks [place] and appears to be coherent. There is swollen distal phalanx of the left third finger with an eroded tip at the nail bed. IMPRESSION: 1. Osteomyelitis, distal phalanx of the left third finger. 2. Diabetes mellitus. 3. Vascular disease. RECOMMENDATIONS: Amputation of the distal phalanx. Informed consent discussed with the patient is thinking about it. [facility]# [id number]
--- NOTE | 2016-11-08 15:10 | Operative Report ---
PREOPERATIVE DIAGNOSES: 1. Osteomyelitis, left distal phalanx, left third finger. 2. Diabetes mellitus. 3. peripheral_ vascular disease. POSTOPERATIVE DIAGNOSES: 1. Osteomyelitis, left distal phalanx, left third finger. 2. Diabetes mellitus. 3. peripheral vascular disease. OPERATION DONE: Amputation of the distal phalanx, left third finger. SURGEON: Jose Strange M.D. ANESTHESIA: Regional. ANESTHESIOLOGIST: Sandra Mathews M.D. DETAILS OF PROCEDURE: The patient was given IV sedation and her block. The left hand was prepped with Betadine and draped in appropriate manner. An incision was made on the dorsal and palmar aspect of the finger at the distal phalanx. This was carried all the way down to the soft tissues and then transected. The joint was disarticulation and distal portion of the middle phalangeal bone was removed. Following satisfactory hemostasis, the incision was closed with interrupted sutures of 3-0 Vicryl for the subcutaneous tissues and the skin was closed with interrupted sutures of 3-0 nylon. Sterile dressing was placed over this. The patient tolerated the procedure well. JOB# [id number] MTDD
--- NOTE | 2016-11-08 20:18 | Infectious Disease Prog Note ---
Infectious Disease Subjective - Review of Systems Service Date: 11/08/16 Subjective: No new change. No fever. patient had amputation of left third finger performed by Dr Garcia. Infectious Disease Objective - Results Result Diagrams: 11/06/16 02:00 11/07/16 06:47 Recent Labs: Laboratory Last Values WBC 4.0 Th/cmm (4.8-10.8) L 11/06/16 02:00 RBC 3.55 Mil/cmm (3.80-5.80) L 11/06/16 02:00 Hgb 10.9 gm/dL (12.6-17.4) L 11/06/16 02:00 Hct 32.2 % (39.0-49.0) L D 11/06/16 02:00 MCV 90.8 fl (80-99) 11/06/16 02:00 MCH 30.7 pg (27.0-31.0) 11/06/16 02:00 MCHC Differential 33.8 pg (28.0-36.0) 11/06/16 02:00 RDW 13.0 % (11.5-20.0) 11/06/16 02:00 Plt Count 144 Th/cmm (150-400) L 11/06/16 02:00 MPV 8.9 fl 11/06/16 02:00 Neutrophils % 67.1 % (40.0-80.0) 11/03/16 18:00 Band Neutrophils % 1 % (0-10) 11/06/16 02:00 Lymphocytes % 19.9 % (20.0-50.0) L 11/03/16 18:00 Monocytes % 10.4 % (2.0-10.0) H 11/03/16 18:00 Eosinophils % 1.7 % (0.0-5.0) 11/03/16 18:00 Basophils % 0.9 % (0.0-2.0) 11/03/16 18:00 Neutrophils (Manual) 58 % (40-80) 11/06/16 02:00 Lymphocytes 22 % (20-50) 11/06/16 02:00 Monocytes 12 % (2-10) H 11/06/16 02:00 Eosinophils 4 % (0-5) 11/06/16 02:00 Basophils 1 % (0-3) 11/06/16 02:00 Atypical Lymphocytes 2 % 11/06/16 02:00 Platelet Estimate ADEQUATE (NORMAL) 11/06/16 02:00 Platelet Morphology GIANT PLATELETS SEEN (NORMAL) 11/06/16 02:00 RBC Morph Micro Appear NORMAL (NORMAL) 11/06/16 02:00 ESR 46 mm/hr (0-20) H 11/04/16 06:28 PT 10.3 SECONDS (9.5-11.5) 11/07/16 06:47 INR 1.04 (0.5-1.4) 11/07/16 06:47 Sodium 138 mEq/L (136-145) 11/07/16 06:47 Potassium 4.3 mEq/L (3.5-5.1) 11/07/16 06:47 Chloride 103 mEq/L (98-107) 11/07/16 06:47 Carbon Dioxide 34.3 mEq/L (21.0-31.0) H 11/07/16 06:47 Anion Gap 5.0 (7.0-16.0) L 11/07/16 06:47 BUN 19 mg/dL (7-25) 11/07/16 06:47 Creatinine 1.1 mg/dL (0.7-1.3) 11/07/16 06:47 Est GFR ( Amer) TNP 11/07/16 06:47 Est GFR (Non-Af Amer) TNP 11/07/16 06:47 BUN/Creatinine Ratio 17.3 11/07/16 06:47 Glucose 92 mg/dL (70-105) 11/07/16 06:47 POC Glucose 110 MG/DL (70 - 105) H 11/08/16 17:17 Calcium 9.3 mg/dL (8.6-10.3) 11/07/16 06:47 Total Bilirubin 0.3 mg/dL (0.3-1.0) 11/07/16 06:47 AST 13 U/L (13-39) 11/07/16 06:47 ALT 8 U/L (7-52) 11/07/16 06:47 Alkaline Phosphatase 56 U/L (34-104) 11/07/16 06:47 Total Protein 6.4 gm/dL (6.0-8.3) 11/07/16 06:47 Albumin 3.3 gm/dL (4.2-5.5) L 11/07/16 06:47 Globulin 3.1 gm/dL 11/07/16 06:47 Albumin/Globulin Ratio 1.1 (1.0-1.8) 11/07/16 06:47 Vancomycin Trough 14.3 ug/mL (10-20) 11/06/16 02:00 - Physical Exam Vitals and I&O: Vital Signs Temp 97.2 F 11/08/16 16:00 Pulse 65 11/08/16 16:04 Resp 19 11/08/16 16:00 BP 142/89 11/08/16 16:04 Pulse Ox 98 11/08/16 16:00 Intake & Output 11/08/16 11/08/16 11/09/16 06:59 18:59 06:59 Intake Total 600 500 Balance 600 500 Weight (lbs) 99.427 kg Intake: Intake, IV Amount 500 500 Vancomycin HCl 1.5 gm In 500 500 Sodium Chloride 0.9% 500 ml @ 250 mls/hr IV Q18H [facility] Rx#:[id number] Oral 100 Other: # Voids 2 Stool Characteristics Soft Soft Active Medications: Current Medications Acetaminophen (Tylenol) 650 mg PO Q4H PRN PRN Reason: Pain (Mild) Stop: 01/03/17 00:17 Last Admin: 11/07/16 23:43 Dose: 650 mg Albuterol Sulfate (Albuterol 2.5mg/3ml Neb Ud) 2.5 mg HHN Q6H PRN PRN Reason: Shortness of Breath Stop: 01/03/17 00:24 Aspirin (Ecotrin) 81 mg PO DAILY [facility] Stop: 01/03/17 08:59 Last Admin: 11/08/16 08:56 Dose: 81 mg Carvedilol (Coreg) 6.25 mg PO BID [facility] Stop: 01/03/17 08:59 Last Admin: 11/08/16 16:04 Dose: 6.25 mg Docusate Sodium (Colace) 100 mg PO BID [facility] Stop: 01/03/17 08:59 Last Admin: 11/08/16 16:04 Dose: 100 mg Vancomycin HCl 1.5 gm/ Sodium (Chloride) 500 mls @ 250 mls/hr IV Q18H [facility] Stop: 01/03/17 14:59 Last Infusion: 11/08/16 12:00 Dose: Infused Ibuprofen (Motrin) 400 mg PO Q6H PRN PRN Reason: Pain (Mild) Stop: 01/03/17 00:19 Insulin Aspart (Novolog) 0 units SUBQ Q6HR [facility] PRN Reason: Protocol Stop: 01/05/17 01:14 Last Admin: 11/08/16 17:26 Dose: Not Given Magnesium Hydroxide (Milk Of Magnesia) 30 ml PO DAILY PRN PRN Reason: Constipation Stop: 01/03/17 00:19 Miscellaneous (Vancomycin Iv Per Pharmacy) 1 ea [facility] PRN [facility] Stop: 01/03/17 13:14 Miscellaneous (Vte Chemical Prophylaxis Screen/ Admission) 1 [facility] PRN PRN PRN Reason: PROTOCOL Stop: 01/03/17 16:57 Multivitamins/Vitamin C (Theragran) 1 tab PO DAILY [facility] Stop: 01/03/17 08:59 Last Admin: 11/08/16 08:56 Dose: 1 tab Pantoprazole Sodium (Protonix) 40 mg PO DAILY [facility] Stop: 01/03/17 08:59 Last Admin: 11/08/16 08:55 Dose: 40 mg Infectious Disease Assmt/Plan - Assessment Assessment: Osteomyelitis, left middle finger. DM2. - Plan Plan: Continue the same treatment. Dc plan if ok with Dr Garcia. Nutritional Asmnt/Malnutr-PDOC - Dietary Evaluation Malnutrition Findings (Please click <Entered> for more info): Nutritional Asmnt/Malnutrition Start: 11/08/16 16: 27 Text: Status: Complete Freq: Document 11/08/16 16:27 GSUN (Rec: 11/08/16 16:39 [id number]) Nutritional Asmnt/Malnutrition Patient General Information Nutritional Screening Moderate Risk Screening Diagnosis Osteomyelitis left third finger Pertinent Medical Hx/Surgical Hx DM2, CAD, asthma, COPD, arthritis, peripheral vascular disease Subjective Information 86 year old male from SNF. pt undergone amputation of left third finger. Pt was cooperative and pleasant during visit. Pt stated gassy stomach not affecting diet, otherwise no nutritional concerns at this time. Avg Po intake 90% of meals, meeting nutritional needs. Current Diet Order/ Nutrition Support [id number] Pertinent Medications Colace, Novolog, MOM, Vancomycin, Theragran, Protonix Pertinent Labs 11/07: Reviewed. Glucose 92. POC glucose 75-140H since adm Nutritional Hx/Data Height 1.73 m Height (Calculated Centimeters) 172.7 Current Weight (lbs) 99.427 kg Weight (Calculated Kilograms) 99.4 Weight (Calculated Grams) 07486.4 [place] Body Weight 154lb Weight Status Obese GI Symptoms Food Allergies No Cultural/Ethnic/[place] Belief Unknown. Usual diet at home Unknown. Skin Integrity/Comment: [place] 19. L middle finger wound, otherwise skin intact. Current %PO Good (75-100%) Estimated Nutritional Goals BEE in Kcals: Adj wt of IBW Calories/Kcals/Kg AdjBW 170lb/77.4kg 25-30kcal Kcals Calculated 1935-2322kcal Protein: Adj wt of IBW Protein g/k-1.2g/kg Protein Calculated 77-93g Fluid: ml 1935-2322ml (1ml/kcal) Nutritional Problem 1. Problem Problem No nutritional problems at this time. Intervention/Recommendation Comments 1. Continue with [address] FNS to provide snack upon request , pt allowed to have 2 extra servings of CHO per day. Expected Outcomes/Goals Expected Outcomes/Goals 1. PO intake continue to meet at least 75% of estimated nutritional needs. Physician Parameters for PEM Serum Albumin (g/dl) 3.1 - 3.4 (Mild)
[2016-11-09] MEDS: INSULIN ASPART, RECOMBINANT 100 UNITS/ML SUBQ SCH ×3 (00:35→11:36)
[2016-11-09] MEDS: Vancomycin HCl 1.5 GM in Sodium Chloride 0.9% 500 ML IV SCH (03:30)
[2016-11-09 08:42] LABS: HEMATOCRIT 33.1 % (39.0-49.0); MEAN CELL VOLUME 91.2 fl (80-99); MEAN CORPUSCULAR HEMOGLOBIN 30.3 pg (27.0-31.0); MEAN CORPUSCULAR HGB CONC 33.2 pg (28.0-36.0); MEAN PLATELET VOLUME 8.4 fl; PLATELET COUNT 140 Th/cmm (150-400); RED BLOOD COUNT 3.63 Mil/cmm (3.80-5.80); RED CELL DISTRIBUTION WIDTH 12.9 % (11.5-20.0); WHITE BLOOD COUNT 3.8 Th/cmm (4.8-10.8)
[2016-11-09 08:53] LABS: ANION GAP 3.1 (7.0-16.0); BUN - UREA NITROGEN 17 mg/dL (7-25); BUN/CREATININE RATIO 14.2; CALCIUM SERUM 9.4 mg/dL (8.6-10.3); CARBON DIOXIDE 39.3 mEq/L (21.0-31.0); CHLORIDE 101 mEq/L (98-107); CREATININE - SERUM 1.2 mg/dL (0.7-1.3); GLUCOSE 98 mg/dL (70-105); POTASSIUM SERUM 4.4 mEq/L (3.5-5.1); SODIUM SERUM 139 mEq/L (136-145)
[2016-11-09] MEDS: Multivitamin Tab PO SCH (08:54)
[2016-11-09] MEDS: Pantoprazole 40 mg EC Tab PO SCH (08:55)
[2016-11-09 09:15] LABS: BAND NEUTROPHILE 2 % (0-10); EOSINOPHIL 3 % (0-5); NEUTROPHILS 61 % (40-80); TOTAL CELLS COUNTED 100
[2016-11-09 09:16] LABS: PLATELET ESTIMATE DECREASED PLATELETS (NORMAL); PLATELET MORPHOLOGY NORMAL (NORMAL)
--- NOTE | 2016-11-09 11:12 | General Progress Note ---
Subjective - Review of Systems Service Date: 11/09/16 Events since last encounter: discharge instruction for wound care: wash stump with peroxide 3 times per week, apply triple antibiotic oint to stump and then dry gauze to my office 2 week after surgery for removal of sutures Subjective: will change dressings in AM doing OK otherwise Objective - Results Result Diagrams: 11/09/16 08:00 11/09/16 08:00 Recent Labs: Laboratory Last Values WBC 3.8 Th/cmm (4.8-10.8) L 11/09/16 08:00 RBC 3.63 Mil/cmm (3.80-5.80) L 11/09/16 08:00 Hgb 11.0 gm/dL (12.6-17.4) L 11/09/16 08:00 Hct 33.1 % (39.0-49.0) L 11/09/16 08:00 MCV 91.2 fl (80-99) 11/09/16 08:00 MCH 30.3 pg (27.0-31.0) 11/09/16 08:00 MCHC Differential 33.2 pg (28.0-36.0) 11/09/16 08:00 RDW 12.9 % (11.5-20.0) 11/09/16 08:00 Plt Count 140 Th/cmm (150-400) L 11/09/16 08:00 MPV 8.4 fl 11/09/16 08:00 Neutrophils % 67.1 % (40.0-80.0) 11/03/16 18:00 Band Neutrophils % 2 % (0-10) 11/09/16 08:00 Lymphocytes % 19.9 % (20.0-50.0) L 11/03/16 18:00 Monocytes % 10.4 % (2.0-10.0) H 11/03/16 18:00 Eosinophils % 1.7 % (0.0-5.0) 11/03/16 18:00 Basophils % 0.9 % (0.0-2.0) 11/03/16 18:00 Neutrophils (Manual) 61 % (40-80) 11/09/16 08:00 Lymphocytes 24 % (20-50) 11/09/16 08:00 Monocytes 8 % (2-10) 11/09/16 08:00 Eosinophils 3 % (0-5) 11/09/16 08:00 Basophils 1 % (0-3) 11/06/16 02:00 Atypical Lymphocytes 2 % 11/09/16 08:00 Platelet Estimate DECREASED PLATELETS (NORMAL) 11/09/16 08:00 Platelet Morphology NORMAL (NORMAL) 11/09/16 08:00 RBC Morph Micro Appear NORMAL (NORMAL) 11/09/16 08:00 ESR 46 mm/hr (0-20) H 11/04/16 06:28 PT 10.3 SECONDS (9.5-11.5) 11/07/16 06:47 INR 1.04 (0.5-1.4) 11/07/16 06:47 Sodium 139 mEq/L (136-145) 11/09/16 08:00 Potassium 4.4 mEq/L (3.5-5.1) 11/09/16 08:00 Chloride 101 mEq/L (98-107) 11/09/16 08:00 Carbon Dioxide 39.3 mEq/L (21.0-31.0) H 11/09/16 08:00 Anion Gap 3.1 (7.0-16.0) L 11/09/16 08:00 BUN 17 mg/dL (7-25) 11/09/16 08:00 Creatinine 1.2 mg/dL (0.7-1.3) 11/09/16 08:00 Est GFR ( Amer) TNP 11/09/16 08:00 Est GFR (Non-Af Amer) TNP 11/09/16 08:00 BUN/Creatinine Ratio 14.2 11/09/16 08:00 Glucose 98 mg/dL (70-105) 11/09/16 08:00 POC Glucose 83 MG/DL (70 - 105) 11/09/16 05:48 Calcium 9.4 mg/dL (8.6-10.3) 11/09/16 08:00 Total Bilirubin 0.3 mg/dL (0.3-1.0) 11/07/16 06:47 AST 13 U/L (13-39) 11/07/16 06:47 ALT 8 U/L (7-52) 11/07/16 06:47 Alkaline Phosphatase 56 U/L (34-104) 11/07/16 06:47 Total Protein 6.4 gm/dL (6.0-8.3) 11/07/16 06:47 Albumin 3.3 gm/dL (4.2-5.5) L 11/07/16 06:47 Globulin 3.1 gm/dL 11/07/16 06:47 Albumin/Globulin Ratio 1.1 (1.0-1.8) 11/07/16 06:47 Vancomycin Trough 14.3 ug/mL (10-20) 11/06/16 02:00 - Physical Exam Vitals and I&O: Vital Signs Temp 98.1 F 11/09/16 03:43 Pulse 63 11/09/16 08:54 Resp 19 11/09/16 08:00 BP 133/68 11/09/16 08:54 Pulse Ox 100 11/09/16 03:43 Intake & Output 11/08/16 11/09/16 11/09/16 18:59 06:59 18:59 Intake Total 500 200 Balance 500 200 Weight (lbs) 99.427 kg Intake: Intake, IV Amount 500 Vancomycin HCl 1.5 gm In 500 Sodium Chloride 0.9% 500 ml @ 250 mls/hr IV Q18H [facility] Rx#:[id number] Oral 200 Other: # Voids 3 Stool Characteristics Soft Soft Active Medications: Current Medications Acetaminophen (Tylenol) 650 mg PO Q4H PRN PRN Reason: Pain (Mild) Stop: 01/03/17 00:17 Last Admin: 11/07/16 23:43 Dose: 650 mg Albuterol Sulfate (Albuterol 2.5mg/3ml Neb Ud) 2.5 mg HHN Q6H PRN PRN Reason: Shortness of Breath Stop: 01/03/17 00:24 Aspirin (Ecotrin) 81 mg PO DAILY [facility] Stop: 01/03/17 08:59 Last Admin: 11/09/16 08:55 Dose: 81 mg Carvedilol (Coreg) 6.25 mg PO BID [facility] Stop: 01/03/17 08:59 Last Admin: 11/09/16 08:54 Dose: 6.25 mg Docusate Sodium (Colace) 100 mg PO BID [facility] Stop: 01/03/17 08:59 Last Admin: 11/09/16 08:55 Dose: 100 mg Vancomycin HCl 1.5 gm/ Sodium (Chloride) 500 mls @ 250 mls/hr IV Q18H [facility] Stop: 01/03/17 14:59 Last Admin: 11/09/16 03:30 Dose: 250 mls/hr Ibuprofen (Motrin) 400 mg PO Q6H PRN PRN Reason: Pain (Mild) Stop: 01/03/17 00:19 Last Admin: 11/09/16 00:03 Dose: 400 mg Insulin Aspart (Novolog) 0 units SUBQ Q6HR [facility] PRN Reason: Protocol Stop: 01/05/17 01:14 Last Admin: 11/09/16 06:17 Dose: Not Given Magnesium Hydroxide (Milk Of Magnesia) 30 ml PO DAILY PRN PRN Reason: Constipation Stop: 01/03/17 00:19 Miscellaneous (Vancomycin Iv Per Pharmacy) 1 ea PRN [facility] Stop: 01/03/17 13:14 Miscellaneous (Vte Chemical Prophylaxis Screen/ Admission) 1 [facility] PRN PRN PRN Reason: PROTOCOL Stop: 01/03/17 16:57 Multivitamins/Vitamin C (Theragran) 1 tab PO DAILY [facility] Stop: 01/03/17 08:59 Last Admin: 11/09/16 08:54 Dose: 1 tab Pantoprazole Sodium (Protonix) 40 mg PO DAILY [facility] Stop: 01/03/17 08:59 Last Admin: 11/09/16 08:55 Dose: 40 mg Nutritional Asmnt/Malnutr-PDOC - Dietary Evaluation Malnutrition Findings (Please click <Entered> for more info): Nutritional Asmnt/Malnutrition Start: 11/08/16 16: 27 Text: Status: Complete Freq: Document 11/08/16 16:27 GSUN (Rec: 11/08/16 16:39 [email or web address] [email or web address]) Nutritional Asmnt/Malnutrition Patient General Information Nutritional Screening Moderate Risk Screening Diagnosis Osteomyelitis left third finger Pertinent Medical Hx/Surgical Hx DM2, CAD, asthma, COPD, arthritis, peripheral vascular disease Subjective Information 86 year old male from SNF. pt undergone amputation of left third finger. Pt was cooperative and pleasant during visit. Pt stated gassy stomach not affecting diet, otherwise no nutritional concerns at this time. Avg Po intake 90% of meals, meeting nutritional needs. Current Diet Order/ Nutrition Support [id number] Pertinent Medications Colace, Novolog, MOM, Vancomycin, Theragran, Protonix Pertinent Labs 2/27: Reviewed. Glucose 92. POC glucose 75-140H since adm Nutritional Hx/Data Height 1.73 m Height (Calculated Centimeters) 172.7 Current Weight (lbs) 99.427 kg Weight (Calculated Kilograms) 99.4 Weight (Calculated Grams) 47751.4 [place] Body Weight 154lb Weight Status Obese GI Symptoms Food Allergies No Cultural/Ethnic/Moravian Belief Unknown. Usual diet at home Unknown. Skin Integrity/Comment: Adonay 19. L middle finger wound, otherwise skin intact. Current %PO Good (75-100%) Estimated Nutritional Goals BEE in Kcals: Adj wt of IBW Calories/Kcals/Kg AdjBW 170lb/77.4kg 25-30kcal Kcals Calculated 1935-2322kcal Protein: Adj wt of IBW Protein g/k-1.2g/kg Protein Calculated 77-93g Fluid: ml 1935-2322ml (1ml/kcal) Nutritional Problem 1. Problem Problem No nutritional problems at this time. Intervention/Recommendation Comments 1. Continue with [address] FNS to provide snack upon request , pt allowed to have 2 extra servings of CHO per day. Expected Outcomes/Goals Expected Outcomes/Goals 1. PO intake continue to meet at least 75% of estimated nutritional needs. Physician Parameters for PEM Serum Albumin (g/dl) 3.1 - 3.4 (Mild)
--- NOTE | 2016-11-09 11:37 | Infectious Disease Prog Note ---
Infectious Disease Subjective - Review of Systems Service Date: 11/09/16 Subjective: No new change. No fever. patient had amputation of left third finger performed by Dr Garcia yesterday. Infectious Disease Objective - Results Result Diagrams: 11/09/16 08:00 11/09/16 08:00 Recent Labs: Laboratory Last Values WBC 3.8 Th/cmm (4.8-10.8) L 11/09/16 08:00 RBC 3.63 Mil/cmm (3.80-5.80) L 11/09/16 08:00 Hgb 11.0 gm/dL (12.6-17.4) L 11/09/16 08:00 Hct 33.1 % (39.0-49.0) L 11/09/16 08:00 MCV 91.2 fl (80-99) 11/09/16 08:00 MCH 30.3 pg (27.0-31.0) 11/09/16 08:00 MCHC Differential 33.2 pg (28.0-36.0) 11/09/16 08:00 RDW 12.9 % (11.5-20.0) 11/09/16 08:00 Plt Count 140 Th/cmm (150-400) L 11/09/16 08:00 MPV 8.4 fl 11/09/16 08:00 Neutrophils % 67.1 % (40.0-80.0) 11/03/16 18:00 Band Neutrophils % 2 % (0-10) 11/09/16 08:00 Lymphocytes % 19.9 % (20.0-50.0) L 11/03/16 18:00 Monocytes % 10.4 % (2.0-10.0) H 11/03/16 18:00 Eosinophils % 1.7 % (0.0-5.0) 11/03/16 18:00 Basophils % 0.9 % (0.0-2.0) 11/03/16 18:00 Neutrophils (Manual) 61 % (40-80) 11/09/16 08:00 Lymphocytes 24 % (20-50) 11/09/16 08:00 Monocytes 8 % (2-10) 11/09/16 08:00 Eosinophils 3 % (0-5) 11/09/16 08:00 Basophils 1 % (0-3) 11/06/16 02:00 Atypical Lymphocytes 2 % 11/09/16 08:00 Platelet Estimate DECREASED PLATELETS (NORMAL) 11/09/16 08:00 Platelet Morphology NORMAL (NORMAL) 11/09/16 08:00 RBC Morph Micro Appear NORMAL (NORMAL) 11/09/16 08:00 ESR 46 mm/hr (0-20) H 11/04/16 06:28 PT 10.3 SECONDS (9.5-11.5) 11/07/16 06:47 INR 1.04 (0.5-1.4) 11/07/16 06:47 Sodium 139 mEq/L (136-145) 11/09/16 08:00 Potassium 4.4 mEq/L (3.5-5.1) 11/09/16 08:00 Chloride 101 mEq/L (98-107) 11/09/16 08:00 Carbon Dioxide 39.3 mEq/L (21.0-31.0) H 11/09/16 08:00 Anion Gap 3.1 (7.0-16.0) L 11/09/16 08:00 BUN 17 mg/dL (7-25) 11/09/16 08:00 Creatinine 1.2 mg/dL (0.7-1.3) 11/09/16 08:00 Est GFR ( Amer) TNP 11/09/16 08:00 Est GFR (Non-Af Amer) TNP 11/09/16 08:00 BUN/Creatinine Ratio 14.2 11/09/16 08:00 Glucose 98 mg/dL (70-105) 11/09/16 08:00 POC Glucose 101 MG/DL (70 - 105) 11/09/16 11:29 Calcium 9.4 mg/dL (8.6-10.3) 11/09/16 08:00 Total Bilirubin 0.3 mg/dL (0.3-1.0) 11/07/16 06:47 AST 13 U/L (13-39) 11/07/16 06:47 ALT 8 U/L (7-52) 11/07/16 06:47 Alkaline Phosphatase 56 U/L (34-104) 11/07/16 06:47 Total Protein 6.4 gm/dL (6.0-8.3) 11/07/16 06:47 Albumin 3.3 gm/dL (4.2-5.5) L 11/07/16 06:47 Globulin 3.1 gm/dL 11/07/16 06:47 Albumin/Globulin Ratio 1.1 (1.0-1.8) 11/07/16 06:47 Vancomycin Trough 14.3 ug/mL (10-20) 11/06/16 02:00 - Physical Exam Vitals and I&O: Vital Signs Temp 98.1 F 11/09/16 03:43 Pulse 63 11/09/16 08:54 Resp 19 11/09/16 08:00 BP 133/68 11/09/16 08:54 Pulse Ox 100 11/09/16 03:43 Intake & Output 11/08/16 11/09/16 11/09/16 18:59 06:59 18:59 Intake Total 500 200 Balance 500 200 Weight (lbs) 99.427 kg Intake: Intake, IV Amount 500 Vancomycin HCl 1.5 gm In 500 Sodium Chloride 0.9% 500 ml @ 250 mls/hr IV Q18H [facility] Rx#:[id number] Oral 200 Other: # Voids 3 Stool Characteristics Soft Soft Active Medications: Current Medications Acetaminophen (Tylenol) 650 mg PO Q4H PRN PRN Reason: Pain (Mild) Stop: 01/03/17 00:17 Last Admin: 11/07/16 23:43 Dose: 650 mg Albuterol Sulfate (Albuterol 2.5mg/3ml Neb Ud) 2.5 mg HHN Q6H PRN PRN Reason: Shortness of Breath Stop: 01/03/17 00:24 Aspirin (Ecotrin) 81 mg PO DAILY [facility] Stop: 01/03/17 08:59 Last Admin: 11/09/16 08:55 Dose: 81 mg Carvedilol (Coreg) 6.25 mg PO BID [facility] Stop: 01/03/17 08:59 Last Admin: 11/09/16 08:54 Dose: 6.25 mg Clindamycin HCl (Cleocin Hcl) 150 mg PO Q8HR [facility] Stop: 01/08/17 12:59 Docusate Sodium (Colace) 100 mg PO BID [facility] Stop: 01/03/17 08:59 Last Admin: 11/09/16 08:55 Dose: 100 mg Vancomycin HCl 1.5 gm/ Sodium (Chloride) 500 mls @ 250 mls/hr IV Q18H [facility] Stop: 01/03/17 14:59 Last Admin: 11/09/16 03:30 Dose: 250 mls/hr Ibuprofen (Motrin) 400 mg PO Q6H PRN PRN Reason: Pain (Mild) Stop: 01/03/17 00:19 Last Admin: 11/09/16 00:03 Dose: 400 mg Insulin Aspart (Novolog) 0 units SUBQ Q6HR [facility] PRN Reason: Protocol Stop: 01/05/17 01:14 Last Admin: 11/09/16 06:17 Dose: Not Given Levofloxacin (Levaquin) 250 mg PO DAILY [facility] Stop: 01/09/17 08:59 Magnesium Hydroxide (Milk Of Magnesia) 30 ml PO DAILY PRN PRN Reason: Constipation Stop: 01/03/17 00:19 Miscellaneous (Vancomycin Iv Per Pharmacy) 1 ea [facility] PRN [facility] Stop: 01/03/17 13:14 Miscellaneous (Vte Chemical Prophylaxis Screen/ Admission) 1 [facility] PRN PRN PRN Reason: PROTOCOL Stop: 01/03/17 16:57 Multivitamins/Vitamin C (Theragran) 1 tab PO DAILY [facility] Stop: 01/03/17 08:59 Last Admin: 11/09/16 08:54 Dose: 1 tab Pantoprazole Sodium (Protonix) 40 mg PO DAILY [facility] Stop: 01/03/17 08:59 Last Admin: 11/09/16 08:55 Dose: 40 mg General: no acute distress, well developed, well nourished HEENT: atraumatic, normocephalic, PERRLA, EOMI Neck: supple, no thyromegaly, no lymphadenopathy Cardiovascular: S1S2, regular Lungs: clear to auscultation bilaterally, clear to percussion Abdomen: soft, no tender, no distended Extremities: other (Left third finger dressing.), no cyanosis, no clubbing, no edema Infectious Disease Assmt/Plan - Assessment Assessment: Osteomyelitis, left middle finger. DM2. - Plan Plan: Continue the same treatment. Dc to snf. Change antibiotics to clinda and levaquin po for 7 days. Nutritional Asmnt/Malnutr-PDOC - Dietary Evaluation Malnutrition Findings (Please click <Entered> for more info): Nutritional Asmnt/Malnutrition Start: 11/08/16 16: 27 Text: Status: Complete Freq: Document 11/08/16 16:27 GSUN (Rec: 11/08/16 16:39 [email or web address] [email or web address]) Nutritional Asmnt/Malnutrition Patient General Information Nutritional Screening Moderate Risk Screening Diagnosis Osteomyelitis left third finger Pertinent Medical Hx/Surgical Hx DM2, CAD, asthma, COPD, arthritis, peripheral vascular disease Subjective Information 86 year old male from SNF. pt undergone amputation of left third finger. Pt was cooperative and pleasant during visit. Pt stated gassy stomach not affecting diet, otherwise no nutritional concerns at this time. Avg Po intake 90% of meals, meeting nutritional needs. Current Diet Order/ Nutrition Support [id number] Pertinent Medications Colace, Novolog, MOM, Vancomycin, Theragran, Protonix Pertinent Labs 11/07: Reviewed. Glucose 92. POC glucose 75-140H since adm Nutritional Hx/Data Height 1.73 m Height (Calculated Centimeters) 172.7 Current Weight (lbs) 99.427 kg Weight (Calculated Kilograms) 99.4 Weight (Calculated Grams) 06943.4 [place] Body Weight 154lb Weight Status Obese GI Symptoms Food Allergies No Cultural/Ethnic/Taoism Belief Unknown. Usual diet at home Unknown. Skin Integrity/Comment: Adonay 19. L middle finger wound, otherwise skin intact. Current %PO Good (75-100%) Estimated Nutritional Goals BEE in Kcals: Adj wt of IBW Calories/Kcals/Kg AdjBW 170lb/77.4kg 25-30kcal Kcals Calculated 1935-2322kcal Protein: Adj wt of IBW Protein g/k-1.2g/kg Protein Calculated 77-93g Fluid: ml 1935-2322ml (1ml/kcal) Nutritional Problem 1. Problem Problem No nutritional problems at this time. Intervention/Recommendation Comments 1. Continue with [id number]. FNS to provide snack upon request , pt allowed to have 2 extra servings of CHO per day. Expected Outcomes/Goals Expected Outcomes/Goals 1. PO intake continue to meet at least 75% of estimated nutritional needs. Physician Parameters for PEM Serum Albumin (g/dl) 3.1 - 3.4 (Mild)
--- NOTE | 2016-11-09 15:08 | Pathology Report ---
[id number] Collection Date: 11/07/2016 Surgeon: Dr. Edmond Garcia Specimen Description: Amputation of left middle fingertip. Gross Description: Received in formalin is a distal fingertip amputation measuring 2.2 x 2.0 x 1.5 cm. A portion of degenerated fingernail is identified with the surrounding skin showing brownish-soto discoloration and ulceration. Sectioning shows very soft, degenerated bony tissue underneath the fingernail. [employer] sections are submitted in one cassette. Microscopic Description: The histologic sections show skin and underlying bony tissue with extensive acute and chronic inflammation present, consisting of increased numbers of neutrophils admixed with lymphocytes and plasma cells. There is degeneration and necrosis of bony tissue identified with large collections of neutrophils surrounding the necrotic bone spicules consistent with osteomyelitis. Diagnosis: 1. Necrotic skin and bone consistent with gangrene (distal left middle fingertip). 2. The bone fragments show degeneration and inflammatory changes consistent with osteomyelitis. [facility]# [id number] [facility]
--- NOTE | 2016-11-14 23:06 | Discharge Summary ---
COURSE OF HOSPITAL STAY: The [facility] Room due to left third finger nonhealing wound and per the Emergency Room the patient was diagnosed with osteomyelitis. The patient was admitted to the Med-Surg floor, consulted with ID specialist for series of IV antibiotic management and also surgical consultation done for possible amputation and per the surgeon's point of view that the left distal phalanx of the left third finger needs to be amputated, so unfortunately the patient ended up have amputation in the left distal phalanx of the left third finger. The ____ was the patient discharged back to the [facility] facility with ____ and discharged with antibiotics. DISCHARGE DIAGNOSES: 1. Osteomyelitis of the left third finger. 2. Hypertension. 3. Osteoarthritis. 4. Gastroesophageal reflux disease. 5. Diabetes. JOB# [id number]
== END 2016-11-09 16:20 | DRG 513 ==
LOC: ER 17:29 → MSI 20:30
PROVIDERS: ADMIT Internal Medicine Infectious Disease; ATTEND Internal Medicine Infectious Disease
PROC: 0X6R0Z3 Detachment at Left Middle Finger, Low, Open Approach (ICD-10-PCS; principal; 2016-11-08)
DX: M86.8X8 Other osteomyelitis, other site (principal); E11.52 Type 2 diabetes mellitus with diabetic peripheral angiopathy with gangrene; F03.90 Unspecified dementia, unspecified severity, without behavioral disturbance, psychotic disturbance, mood disturbance, and anxiety; E11.69 Type 2 diabetes mellitus with other specified complication; J44.9 Chronic obstructive pulmonary disease, unspecified; I25.10 Atherosclerotic heart disease of native coronary artery without angina pectoris; J45.909 Unspecified asthma, uncomplicated; M19.90 Unspecified osteoarthritis, unspecified site; K21.9 Gastro-esophageal reflux disease without esophagitis; Z82.49 Family history of ischemic heart disease and other diseases of the circulatory system; Z89.022 Acquired absence of left finger(s)
CPT/HCPCS: 36415-UA; 71010-TC; 73120-TC-LT; 80048-TC; 80053-TC; 80202-TC; 82948-90; 85007-TC; 85025-TC; 85027-TC; 85610-TC; 85652-TC; 88304-TC; 93005; J1815; J2001; J2250; J2704; J3370; J7040; V2790; Z7610